=== PATIENT | male | born 1950 | race Caucasian/White ===

== ENCOUNTER 2023-08-27 14:03 | Inpatient (IN) ==
[2023-08-27] MEDS ORDERED: IOPAMIDOL 100 ML BOTTLE IV ONE (14:04)
[2023-08-27 15:03] LABS: Basophils # (Auto) 0.01 K/mcL (0.00-0.30); Basophils % (Auto) 0.1 % (0.0-2.0); Eosinophils # (Auto) 0.03 K/mcL (0.00-0.70); Eosinophils % (Auto) 0.4 % (0.0-7.0); Hemoglobin 12.7 g/dL (13.7-17.5); Lymphocytes # (Auto) 0.21 K/mcL (1.50-4.80); Lymphocytes % (Auto) 2.6 % (15.5-49.0); Mean Cell Volume 98.7 fL (80.0-100.0); Mean Corpuscular HGB Conc 33.4 g/dL (31.0-36.0); Mean Platelet Volume 9.7 fL (8.8-12.5); Monocytes # (Auto) 0.37 K/mcL (0.10-0.90); Monocytes % (Auto) 4.5 % (1.0-12.0); Neutrophils % (Auto) 91.9 % (38.0-78.0); Platelet Count 206 K/mcL (140-440); RBC 3.85 M/mcL (4.63-6.08); Red Cell Distribution Width 17.1 % (11.5-14.5); WBC 8.2 K/mcL (4.5-11.0)
[2023-08-27 16:05] LABS: ALT/SGPT 32 U/L (<40); AST/SGOT 29 U/L (<40); Albumin 3.8 gm/dL (3.2-5.2); Albumin/Globulin Ratio 1.2 (1.0-2.3); Alkaline Phosphatase 156 U/L (39-117); Anion Gap 13.7 (8.0-16.0); Bilirubin,Total 0.3 mg/dL (0.1-1.0); Blood Urea Nitrogen 24 mg/dL (8-23); Calcium 9.5 mg/dL (8.6-10.4); Carbon Dioxide 23 mmol/L (22-30); Chloride 100 mmol/L (96-108); Globulin 3.2 gm/dL (2.2-3.7); Glomerular Filtration Rate 91; Glucose 144 mg/dL (70-105)
[2023-08-27] MEDS ORDERED: fentaNYL 100 MCG/2 ML VIAL IV ONE ×2 (17:43→18:48)
[2023-08-27] MEDS ORDERED: PIPERACILLIN SODIUM/TAZOBACTAM 3.375 GM in DEXTROSE 5% IN WATER 50 ML IV ONE (17:43)
[2023-08-27] MEDS ORDERED: ONDANSETRON 4 MG/2 ML VIAL ONE (18:47)
[2023-08-27] MEDS ORDERED: ROCURONIUM 10 MG/ML ML IV ONE (18:47)
[2023-08-27] MEDS ORDERED: PROPOFOL 200 MG/20 ML VIAL IV ONE (18:47)
[2023-08-27] MEDS ORDERED: ePHEDrine 50 MG/5 ML SYRINGE (ANEST) IV ONE (19:32)
[2023-08-27] MEDS ORDERED: PHENYLephrine 1 MG/10 ML SYRINGE (ANEST) ONE (19:32)
[2023-08-27] MEDS ORDERED: CLINDAMYCIN IN 0.9 % SOD CHLOR 900 MG/50 ML BAG IV STA (19:41)
[2023-08-27] MEDS ORDERED: SUGAMMADEX SODIUM 200 MG/2 ML VIAL IV ONE (19:59)
[2023-08-27] MEDS ORDERED: IPRATROPIUM/ALBUTEROL 3 ML AMPUL.NEB NEB PRN (20:28)
[2023-08-27] MEDS ORDERED: ONDANSETRON 4 MG/2 ML VIAL IV PRN (20:28)
[2023-08-27] MEDS ORDERED: LACTATED RINGERS 1,000 ML IV SCH (20:30)
[2023-08-27] MEDS ORDERED: BUPIVACAINE W/EPI 0.25% 50 ML VIAL IJ ONE (20:45)
[2023-08-27] MEDS ORDERED: VANCOMYCIN PER PHARMACY IV ONE (21:38)
[2023-08-27] MEDS ORDERED: HYDROmorphone 0.5 MG/0.5 ML SYRINGE IV PRN (21:45)
[2023-08-27] MEDS: DEXTROSE 5%-1/2NS W/10MEQ KCL 1,000 ML IV SCH (22:03)
[2023-08-27] MEDS ORDERED: VANCOMYCIN 500 MG in 0.9 % SODIUM CHLORIDE 100 ML IV ONE (22:28)
[2023-08-27] MEDS ORDERED: oxyCODONE IR 5 MG TABLET PO ONE (22:54)
[2023-08-27] MEDS ORDERED: ACETAMINOPHEN 325 MG TABLET PO ONE (22:54)
[2023-08-27] MEDS: ACETAMINOPHEN 325 MG TABLET PO PRN (22:56)
[2023-08-27] MEDS: oxyCODONE IR 5 MG TABLET PO PRN (22:58)
[2023-08-28] MEDS: CLINDAMYCIN IN 0.9 % SOD CHLOR 600 MG/50 ML BAG IV SCH ×4 (00:07→17:30)
[2023-08-28] MEDS ORDERED: 0.9 % SODIUM CHLORIDE 1,000 ML IV SCH (00:30)
[2023-08-28] MEDS: PIPERACILLIN SODIUM/TAZOBACTAM 3.375 GM in DEXTROSE 5% IN WATER 100 ML IV SCH ×3 (00:54→20:31)
[2023-08-28] MEDS: ACETAMINOPHEN 325 MG TABLET PO PRN ×2 (04:55→13:27)
[2023-08-28] MEDS ORDERED: oxyCODONE IR 5 MG TABLET PO ONE (05:37)
[2023-08-28] MEDS ORDERED: ACETAMINOPHEN 325 MG TABLET PO ONE (05:37)
[2023-08-28] MEDS: oxyCODONE IR 5 MG TABLET PO PRN (05:39)
[2023-08-28] MEDS: DEXTROSE 5%-1/2NS W/10MEQ KCL 1,000 ML IV SCH (06:51)
[2023-08-28 07:08] LABS: Hematocrit 30.5 % (40.1-51.0); Hemoglobin 10.1 g/dL (13.7-17.5); Mean Cell Volume 100.3 fL (80.0-100.0); Mean Corpuscular HGB Conc 33.1 g/dL (31.0-36.0); Mean Platelet Volume 10.2 fL (8.8-12.5); Platelet Count 162 K/mcL (140-440); RBC 3.04 M/mcL (4.63-6.08); Red Cell Distribution Width 17.4 % (11.5-14.5); WBC 4.5 K/mcL (4.5-11.0)
[2023-08-28 07:22] LABS: Anion Gap 8.4 (8.0-16.0); Blood Urea Nitrogen 16 mg/dL (8-23); Carbon Dioxide 24 mmol/L (22-30); Chloride 104 mmol/L (96-108); Glomerular Filtration Rate 102; Glucose 135 mg/dL (70-105)
[2023-08-28] MEDS ORDERED: VANCOMYCIN PER PHARMACY IV SCH (08:00)
[2023-08-28] MEDS: VANCOMYCIN 1,000 MG in 0.9 % SODIUM CHLORIDE 250 ML IV SCH ×2 (08:34→21:32)
[2023-08-28] MEDS ORDERED: NOREPINEPHRINE BITARTRATE 8 MG in 0.9 % SODIUM CHLORIDE 242 ML IV PRN (09:15)
[2023-08-28] MEDS ORDERED: NOREPINEPHRINE BITARTRATE 8 MG in 0.9 % SODIUM CHLORIDE 242 ML IV SCH ×2 (09:15→15:00)
[2023-08-28] MEDS: 0.9 % SODIUM CHLORIDE 250 ML IV SCH (15:34)
[2023-08-28] MEDS: ONDANSETRON 4 MG/2 ML VIAL IV PRN (20:26)
[2023-08-28] MEDS ORDERED: PROMETHAZINE 25 MG/ML VIAL IV PRN (22:04)
[2023-08-28] MEDS: ALPRAZolam 0.5 MG TABLET PO PRN (22:44)
[2023-08-29] MEDS: CLINDAMYCIN IN 0.9 % SOD CHLOR 600 MG/50 ML BAG IV SCH ×5 (00:19→23:32)
[2023-08-29] MEDS: 0.9 % SODIUM CHLORIDE 250 ML IV SCH ×2 (00:19→11:48)
[2023-08-29] MEDS: PIPERACILLIN SODIUM/TAZOBACTAM 3.375 GM in DEXTROSE 5% IN WATER 100 ML IV SCH ×3 (03:36→19:02)
[2023-08-29 06:05] LABS: Hematocrit 33.6 % (40.1-51.0); Hemoglobin 11.2 g/dL (13.7-17.5); Mean Cell Volume 100.3 fL (80.0-100.0); Mean Corpuscular HGB Conc 33.3 g/dL (31.0-36.0); Platelet Count 280 K/mcL (140-440); RBC 3.35 M/mcL (4.63-6.08); Red Cell Distribution Width 17.5 % (11.5-14.5)
[2023-08-29 06:25] LABS: Anion Gap 11.1 (8.0-16.0); Blood Urea Nitrogen 11 mg/dL (8-23); Carbon Dioxide 18 mmol/L (22-30); Chloride 109 mmol/L (96-108); Glomerular Filtration Rate 103; Glucose 93 mg/dL (70-105)
[2023-08-29] MEDS ORDERED: FUROSEMIDE 20 MG/2 ML VIAL IV ONE (06:57)
[2023-08-29] MEDS: VANCOMYCIN 1,000 MG in 0.9 % SODIUM CHLORIDE 250 ML IV SCH ×2 (09:32→20:39)
[2023-08-29] MEDS ORDERED: NOREPINEPHRINE BITARTRATE 8 MG in 0.9 % SODIUM CHLORIDE 242 ML IV PRN (12:30)
[2023-08-29] MEDS: oxyCODONE IR 5 MG TABLET PO PRN ×2 (17:58→23:32)
[2023-08-30] MEDS: PIPERACILLIN SODIUM/TAZOBACTAM 3.375 GM in DEXTROSE 5% IN WATER 100 ML IV SCH ×3 (03:20→20:45)
[2023-08-30] MEDS: CLINDAMYCIN IN 0.9 % SOD CHLOR 600 MG/50 ML BAG IV SCH ×2 (05:22→11:53)
[2023-08-30] MEDS: ONDANSETRON 4 MG/2 ML VIAL IV PRN ×3 (05:52→16:12)
[2023-08-30] MEDS: OLMESARTAN MEDOXOMIL 20 MG TABLET PO SCH (09:55)
[2023-08-30] MEDS: oxyCODONE IR 5 MG TABLET PO PRN ×2 (09:57→19:01)
[2023-08-30] MEDS: VANCOMYCIN 1,000 MG in 0.9 % SODIUM CHLORIDE 250 ML IV SCH (10:00)
[2023-08-30] MEDS ORDERED: FUROSEMIDE 20 MG/2 ML VIAL IV SCH (11:09)
[2023-08-30] MEDS ORDERED: FLUTICASONE PROPIONATE SPRAY.NAS NS PRN (11:10)
[2023-08-30 12:56] LABS: Hematocrit 35.2 % (40.1-51.0); Hemoglobin 11.4 g/dL (13.7-17.5); Mean Cell Volume 100.3 fL (80.0-100.0); Mean Corpuscular HGB Conc 32.4 g/dL (31.0-36.0); Mean Platelet Volume 9.9 fL (8.8-12.5); Platelet Count 228 K/mcL (140-440); RBC 3.51 M/mcL (4.63-6.08); Red Cell Distribution Width 17.7 % (11.5-14.5); WBC 4.9 K/mcL (4.5-11.0)
[2023-08-30 13:02] LABS: Blood Urea Nitrogen 8 mg/dL (8-23); Carbon Dioxide 18 mmol/L (22-30); Chloride 107 mmol/L (96-108); Glomerular Filtration Rate 106; Glucose 114 mg/dL (70-105)
[2023-08-30] MEDS ORDERED: BISACODYL 10 MG SUPP.RECT PR SCH (13:49)
[2023-08-30] MEDS: SODIUM CHLORIDE NASAL 1 SPRAY BOTTLE NAS SCH ×2 (14:16→20:46)
[2023-08-30] MEDS ORDERED: FUROSEMIDE 40 MG/4 ML VIAL IV SCH (18:00)
[2023-08-30] MEDS: ALPRAZolam 0.5 MG TABLET PO PRN (19:01)
[2023-08-30] MEDS ORDERED: LACTULOSE 20 GM/30 ML ORAL.SOL PO SCH (19:11)
[2023-08-31] MEDS: oxyCODONE IR 5 MG TABLET PO PRN (01:00)
[2023-08-31] MEDS: PIPERACILLIN SODIUM/TAZOBACTAM 3.375 GM in DEXTROSE 5% IN WATER 100 ML IV SCH ×3 (03:36→19:14)
[2023-08-31 08:11] LABS: Blood Urea Nitrogen 8 mg/dL (8-23); Calcium 7.7 mg/dL (8.6-10.4); Carbon Dioxide 23 mmol/L (22-30); Chloride 105 mmol/L (96-108); Glomerular Filtration Rate 92; Glucose 91 mg/dL (70-105)
[2023-08-31] MEDS: OLMESARTAN MEDOXOMIL 20 MG TABLET PO SCH (08:32)
[2023-08-31] MEDS: SODIUM CHLORIDE NASAL 1 SPRAY BOTTLE NAS SCH ×2 (08:33→20:59)
[2023-08-31] MEDS ORDERED: POTASSIUM CHLORIDE 20 MEQ TABLET PO SCH (11:40)
[2023-08-31] MEDS: FUROSEMIDE 20 MG/2 ML VIAL IV SCH (16:32)
[2023-08-31] MEDS: ALPRAZolam 0.5 MG TABLET PO PRN (21:51)
[2023-09-01] MEDS: PIPERACILLIN SODIUM/TAZOBACTAM 3.375 GM in DEXTROSE 5% IN WATER 100 ML IV SCH ×3 (02:29→20:19)
[2023-09-01] MEDS: FUROSEMIDE 20 MG/2 ML VIAL IV SCH (07:20)
[2023-09-01 08:10] LABS: Blood Urea Nitrogen 11 mg/dL (8-23); Calcium 8.2 mg/dL (8.6-10.4); Carbon Dioxide 25 mmol/L (22-30); Chloride 103 mmol/L (96-108); Glomerular Filtration Rate 92; Glucose 128 mg/dL (70-105)
[2023-09-01] MEDS: OLMESARTAN MEDOXOMIL 20 MG TABLET PO SCH (08:13)
[2023-09-01] MEDS: SODIUM CHLORIDE NASAL 1 SPRAY BOTTLE NAS SCH ×2 (08:14→20:19)
[2023-09-01] MEDS ORDERED: VANCOMYCIN 1,000 MG in 0.9 % SODIUM CHLORIDE 250 ML IV ONE (11:00)
[2023-09-01] MEDS: ALPRAZolam 0.5 MG TABLET PO PRN (22:49)
[2023-09-02] MEDS: PIPERACILLIN SODIUM/TAZOBACTAM 3.375 GM in DEXTROSE 5% IN WATER 100 ML IV SCH ×2 (02:27→13:03)
[2023-09-02 07:10] LABS: Vancomycin,Random 17.5 ug/mL
[2023-09-02] MEDS: SODIUM CHLORIDE NASAL 1 SPRAY BOTTLE NAS SCH (10:03)
[2023-09-02] MEDS: OLMESARTAN MEDOXOMIL 20 MG TABLET PO SCH (10:03)
[2023-09-02 10:22] LABS: Blood Urea Nitrogen 14 mg/dL (8-23); Calcium 8.1 mg/dL (8.6-10.4); Carbon Dioxide 22 mmol/L (22-30); Chloride 105 mmol/L (96-108); Glomerular Filtration Rate 92; Glucose 84 mg/dL (70-105)
== END 2023-09-02 16:35 | DRG 394 ==
LOC: ED 14:03 → SSSU 18:35 → MEDSUR 21:07 → INTOOBSV 21:07 → ICU 08-28 10:50 → MEDSUR 08-29 17:50
PROVIDERS: ADMIT Surgery Surgical Critical Care; ATTEND Internal Medicine

== ENCOUNTER 2024-05-04 13:56 | Inpatient (IN) ==
[2024-05-04] MEDS: KETOROLAC 15 MG/ML VIAL IV ONE (14:35)
[2024-05-04 14:58] LABS: Basophils # (Auto) 0.03 K/mcL (0.00-0.30); Basophils % (Auto) 0.7 % (0.0-2.0); Eosinophils # (Auto) 0.05 K/mcL (0.00-0.70); Eosinophils % (Auto) 1.2 % (0.0-7.0); Hematocrit 40.4 % (40.1-51.0); Hemoglobin 12.9 g/dL (13.7-17.5); Lymphocytes # (Auto) 0.71 K/mcL (1.50-4.80); Mean Cell Volume 96.7 fL (80.0-100.0); Mean Corpuscular HGB Conc 31.9 g/dL (31.0-36.0); Mean Platelet Volume 9.9 fL (8.8-12.5); Monocytes # (Auto) 0.28 K/mcL (0.10-0.90); Monocytes % (Auto) 6.7 % (1.0-12.0); Neutrophils % (Auto) 74.4 % (38.0-78.0); Platelet Count 244 K/mcL (140-440); RBC 4.18 M/mcL (4.63-6.08); Red Cell Distribution Width 15.3 % (11.5-14.5); WBC 4.2 K/mcL (4.5-11.0)
[2024-05-04 15:16] LABS: ALT/SGPT 12 U/L (<40); AST/SGOT 20 U/L (<40); Albumin 4.2 gm/dL (3.2-5.2); Albumin/Globulin Ratio 1.6 (1.0-2.3); Alkaline Phosphatase 119 U/L (39-117); Bilirubin,Total 0.4 mg/dL (0.1-1.0); Blood Urea Nitrogen 19 mg/dL (8-23); Calcium 9.6 mg/dL (8.6-10.4); Carbon Dioxide 28 mmol/L (22-30); Chloride 102 mmol/L (96-108); Globulin 2.6 gm/dL (2.2-3.7); Glomerular Filtration Rate 98; Glucose 157 mg/dL (70-105); Potassium 4.1 mmol/L (3.3-5.1); Sodium 139 mmol/L (133-145)
[2024-05-04] MEDS ORDERED: SENNOSIDES 1 TABLET PO PRN (17:33)
[2024-05-04] MEDS ORDERED: MAGNESIUM HYDROXIDE 30 ML ORAL.SUSP PO PRN (17:33)
[2024-05-04] MEDS ORDERED: oxyCODONE IR 5 MG TABLET PO PRN (17:33)
[2024-05-04] MEDS ORDERED: ONDANSETRON 4 MG/2 ML VIAL IV PRN (17:33)
[2024-05-04] MEDS: ACETAMINOPHEN 325 MG TABLET PO PRN (18:13)
[2024-05-04] MEDS: 0.9 % SODIUM CHLORIDE 10 ML SYRINGE IV SCH (20:08)
[2024-05-04] MEDS: HEPARIN 5,000 UNIT/ML VIAL SQ SCH (20:08)
[2024-05-04] MEDS ORDERED: traMADol 50 MG TABLET PO PRN (20:16)
[2024-05-04] MEDS: TAMSULOSIN 0.4 MG CAPSULE PO SCH (21:32)
[2024-05-04] MEDS: ALPRAZolam 0.5 MG TABLET PO PRN (21:32)
[2024-05-05 06:07] LABS: Basophils # (Auto) 0.02 K/mcL (0.00-0.30); Basophils % (Auto) 0.6 % (0.0-2.0); Eosinophils # (Auto) 0.12 K/mcL (0.00-0.70); Eosinophils % (Auto) 3.6 % (0.0-7.0); Hematocrit 34.2 % (40.1-51.0); Hemoglobin 11.3 g/dL (13.7-17.5); Lymphocytes # (Auto) 1.11 K/mcL (1.50-4.80); Lymphocytes % (Auto) 33.6 % (15.5-49.0); Mean Cell Volume 95.5 fL (80.0-100.0); Monocytes # (Auto) 0.26 K/mcL (0.10-0.90); Monocytes % (Auto) 7.9 % (1.0-12.0); Neutrophils % (Auto) 54.3 % (38.0-78.0); Platelet Count 219 K/mcL (140-440); RBC 3.58 M/mcL (4.63-6.08); Red Cell Distribution Width 15.3 % (11.5-14.5); WBC 3.3 K/mcL (4.5-11.0)
[2024-05-05 06:43] LABS: ALT/SGPT 9 U/L (<40); AST/SGOT 19 U/L (<40); Albumin 3.5 gm/dL (3.2-5.2); Albumin/Globulin Ratio 1.7 (1.0-2.3); Alkaline Phosphatase 96 U/L (39-117); Bilirubin,Total 0.5 mg/dL (0.1-1.0); Blood Urea Nitrogen 23 mg/dL (8-23); Calcium 8.8 mg/dL (8.6-10.4); Carbon Dioxide 24 mmol/L (22-30); Chloride 105 mmol/L (96-108); Globulin 2.1 gm/dL (2.2-3.7); Glomerular Filtration Rate 92; Glucose 93 mg/dL (70-105); Potassium 4.2 mmol/L (3.3-5.1); Sodium 139 mmol/L (133-145)
[2024-05-05] MEDS: CILOSTAZOL 100 MG TABLET PO SCH (08:27)
[2024-05-05] MEDS: OLMESARTAN MEDOXOMIL 20 MG TABLET PO SCH (08:27)
[2024-05-05] MEDS: SODIUM CHLORIDE NASAL 1 SPRAY BOTTLE NAS PRN (22:43)
[2024-05-06 06:04] LABS: Basophils # (Auto) 0.02 K/mcL (0.00-0.30); Basophils % (Auto) 0.6 % (0.0-2.0); Eosinophils # (Auto) 0.09 K/mcL (0.00-0.70); Eosinophils % (Auto) 2.8 % (0.0-7.0); Hematocrit 34.4 % (40.1-51.0); Hemoglobin 11.1 g/dL (13.7-17.5); Lymphocytes # (Auto) 1.18 K/mcL (1.50-4.80); Lymphocytes % (Auto) 36.2 % (15.5-49.0); Mean Cell Volume 96.6 fL (80.0-100.0); Mean Corpuscular HGB Conc 32.3 g/dL (31.0-36.0); Monocytes # (Auto) 0.29 K/mcL (0.10-0.90); Monocytes % (Auto) 8.9 % (1.0-12.0); Neutrophils % (Auto) 51.5 % (38.0-78.0); Platelet Count 215 K/mcL (140-440); RBC 3.56 M/mcL (4.63-6.08); Red Cell Distribution Width 15.1 % (11.5-14.5); WBC 3.3 K/mcL (4.5-11.0)
[2024-05-06 06:21] LABS: ALT/SGPT 10 U/L (<40); AST/SGOT 18 U/L (<40); Albumin 3.5 gm/dL (3.2-5.2); Albumin/Globulin Ratio 1.7 (1.0-2.3); Alkaline Phosphatase 99 U/L (39-117); Bilirubin,Total 0.4 mg/dL (0.1-1.0); Blood Urea Nitrogen 26 mg/dL (8-23); Carbon Dioxide 26 mmol/L (22-30); Chloride 105 mmol/L (96-108); Globulin 2.1 gm/dL (2.2-3.7); Glomerular Filtration Rate 98; Glucose 92 mg/dL (70-105); Potassium 4.3 mmol/L (3.3-5.1); Sodium 140 mmol/L (133-145)
[2024-05-06] MEDS ORDERED: FLUTICASONE PROPIONATE SPRAY.NAS NS PRN (09:09)
[2024-05-07 06:16] LABS: Basophils # (Auto) 0.02 K/mcL (0.00-0.30); Basophils % (Auto) 0.6 % (0.0-2.0); Eosinophils % (Auto) 3.1 % (0.0-7.0); Hematocrit 34.5 % (40.1-51.0); Hemoglobin 11.3 g/dL (13.7-17.5); Lymphocytes # (Auto) 1.06 K/mcL (1.50-4.80); Lymphocytes % (Auto) 33.2 % (15.5-49.0); Mean Cell Volume 96.4 fL (80.0-100.0); Mean Corpuscular HGB Conc 32.8 g/dL (31.0-36.0); Mean Platelet Volume 10.2 fL (8.8-12.5); Monocytes # (Auto) 0.26 K/mcL (0.10-0.90); Monocytes % (Auto) 8.2 % (1.0-12.0); Neutrophils % (Auto) 54.9 % (38.0-78.0); Platelet Count 204 K/mcL (140-440); RBC 3.58 M/mcL (4.63-6.08); Red Cell Distribution Width 15.1 % (11.5-14.5); WBC 3.2 K/mcL (4.5-11.0)
[2024-05-07 06:31] LABS: ALT/SGPT 13 U/L (<40); AST/SGOT 26 U/L (<40); Albumin 3.6 gm/dL (3.2-5.2); Albumin/Globulin Ratio 1.7 (1.0-2.3); Alkaline Phosphatase 100 U/L (39-117); Bilirubin,Total 0.5 mg/dL (0.1-1.0); Blood Urea Nitrogen 29 mg/dL (8-23); Calcium 9.1 mg/dL (8.6-10.4); Carbon Dioxide 25 mmol/L (22-30); Chloride 105 mmol/L (96-108); Globulin 2.1 gm/dL (2.2-3.7); Glomerular Filtration Rate 92; Glucose 92 mg/dL (70-105); Potassium 4.2 mmol/L (3.3-5.1); Sodium 140 mmol/L (133-145)
== END 2024-05-07 13:30 | DRG 534 ==
LOC: ED 13:56 → MEDSUR 17:26
PROVIDERS: ADMIT Student in an Organized Health Care Education/Training Program; ATTEND Internal Medicine

== ENCOUNTER 2025-07-29 15:13 | Inpatient (IN) ==
[2025-07-29 19:33] LABS: Basophils # (Auto) 0.02 K/mcL (0.00-0.30); Basophils % (Auto) 0.6 % (0.0-2.0); Eosinophils # (Auto) 0.01 K/mcL (0.00-0.70); Eosinophils % (Auto) 0.3 % (0.0-7.0); Hematocrit 42.7 % (40.1-51.0); Hemoglobin 13.7 g/dL (13.7-17.5); Lymphocytes # (Auto) 0.38 K/mcL (1.50-4.80); Lymphocytes % (Auto) 10.8 % (15.5-49.0); Mean Corpuscular HGB Conc 32.1 g/dL (31.0-36.0); Monocytes # (Auto) 0.15 K/mcL (0.10-0.90); Monocytes % (Auto) 4.3 % (1.0-12.0); Neutrophils % (Auto) 83.7 % (38.0-78.0); Platelet Count 157 K/mcL (140-440); RBC 4.54 M/mcL (4.63-6.08); WBC 3.5 K/mcL (4.5-11.0)
[2025-07-29 19:47] LABS: Bacteria,Urine 0 /hpf (0); Bilirubin,Urine NEGATIVE (Negative); Color,Urine LT. YELLOW; Glucose,Urine (UA) NEGATIVE (Negative); Ketones,Urine NEGATIVE (Negative); Leukocyte Esterase,Urine NEGATIVE /uL (Negative); PH,Urine 6.0 (5.0-9.0); Protein,Urine NEGATIVE (Negative); Specific Gravity,Urine <= 1.005 (1.000-1.035); Urobilinogen,Urine 0.2 mg/dL
[2025-07-29 19:57] LABS: ALT/SGPT 34 U/L (<40); AST/SGOT 27 U/L (<40); Albumin 4.1 gm/dL (3.2-5.2); Albumin/Globulin Ratio 1.7 (1.0-2.3); Alkaline Phosphatase 151 U/L (39-117); Anion Gap 9.0 (8.0-16.0); Bilirubin,Total 1.2 mg/dL (0.1-1.0); Blood Urea Nitrogen 18 mg/dL (8-23); Calcium 9.4 mg/dL (8.6-10.4); Carbon Dioxide 27 mmol/L (22-30); Chloride 106 mmol/L (96-108); Globulin 2.4 gm/dL (2.2-3.7); Glucose 93 mg/dL (70-105); Potassium 3.9 mmol/L (3.3-5.1); Sodium 142 mmol/L (133-145)
[2025-07-29] MEDS ORDERED: ONDANSETRON 4 MG/2 ML VIAL IV PRN (20:38)
[2025-07-29] MEDS ORDERED: BACLOFEN 10 MG TABLET PO PRN (20:38)
[2025-07-29] MEDS ORDERED: hydrALAZINE 20 MG/ML VIAL IV PRN (20:38)
[2025-07-29] MEDS ORDERED: ACETAMINOPHEN 325 MG TABLET PO PRN (20:38)
[2025-07-29] MEDS ORDERED: IPRATROPIUM/ALBUTEROL 3 ML AMPUL.NEB NEB PRN (20:38)
[2025-07-29] MEDS ORDERED: FLUTICASONE PROPIONATE SPRAY.NAS NS PRN (21:48)
[2025-07-29] MEDS: SENNOSIDES 1 TABLET PO SCH (22:56)
[2025-07-29] MEDS: DOCUSATE SODIUM 100 MG CAPSULE PO SCH (22:56)
[2025-07-29] MEDS: 0.9 % SODIUM CHLORIDE 10 ML SYRINGE IV SCH (22:57)
[2025-07-30] MEDS: CILOSTAZOL 100 MG TABLET PO SCH (08:33)
[2025-07-30] MEDS: VITAMIN D3 25 MCG TABLET PO SCH (08:33)
[2025-07-30] MEDS: OLMESARTAN MEDOXOMIL 20 MG TABLET PO SCH (08:34)
[2025-07-30] MEDS: TAMSULOSIN 0.4 MG CAPSULE PO SCH (22:27)
[2025-07-31] MEDS: FLU VACC TS2025-26(65YR UP)/PF 180 MCG/0.5 ML SYRINGE IM ONE (09:13)
[2025-07-31] MEDS: SODIUM CHLORIDE NASAL 1 SPRAY BOTTLE NAS PRN (14:20)
[2025-08-01 06:22] LABS: Basophils # (Auto) 0.01 K/mcL (0.00-0.30); Basophils % (Auto) 0.3 % (0.0-2.0); Eosinophils # (Auto) 0.07 K/mcL (0.00-0.70); Eosinophils % (Auto) 2.2 % (0.0-7.0); Hematocrit 36.8 % (40.1-51.0); Hemoglobin 11.8 g/dL (13.7-17.5); Lymphocytes # (Auto) 0.96 K/mcL (1.50-4.80); Lymphocytes % (Auto) 29.8 % (15.5-49.0); Mean Corpuscular HGB Conc 32.1 g/dL (31.0-36.0); Monocytes # (Auto) 0.28 K/mcL (0.10-0.90); Monocytes % (Auto) 8.7 % (1.0-12.0); Neutrophils % (Auto) 58.4 % (38.0-78.0); Platelet Count 164 K/mcL (140-440); RBC 3.89 M/mcL (4.63-6.08); WBC 3.2 K/mcL (4.5-11.0)
[2025-08-01 06:30] LABS: ALT/SGPT 25 U/L (<40); AST/SGOT 22 U/L (<40); Albumin 3.4 gm/dL (3.2-5.2); Albumin/Globulin Ratio 1.7 (1.0-2.3); Alkaline Phosphatase 119 U/L (39-117); Anion Gap 9.0 (8.0-16.0); Bilirubin,Total 0.5 mg/dL (0.1-1.0); Blood Urea Nitrogen 23 mg/dL (8-23); Calcium 8.8 mg/dL (8.6-10.4); Carbon Dioxide 25 mmol/L (22-30); Chloride 105 mmol/L (96-108); Globulin 2.0 gm/dL (2.2-3.7); Glucose 84 mg/dL (70-105); Potassium 4.2 mmol/L (3.3-5.1); Sodium 139 mmol/L (133-145)
[2025-08-02 06:47] LABS: Basophils # (Auto) 0.01 K/mcL (0.00-0.30); Basophils % (Auto) 0.3 % (0.0-2.0); Eosinophils # (Auto) 0.08 K/mcL (0.00-0.70); Eosinophils % (Auto) 2.5 % (0.0-7.0); Hematocrit 37.1 % (40.1-51.0); Hemoglobin 12.1 g/dL (13.7-17.5); Lymphocytes # (Auto) 0.81 K/mcL (1.50-4.80); Lymphocytes % (Auto) 25.2 % (15.5-49.0); Mean Corpuscular HGB Conc 32.6 g/dL (31.0-36.0); Monocytes # (Auto) 0.26 K/mcL (0.10-0.90); Monocytes % (Auto) 8.1 % (1.0-12.0); Neutrophils % (Auto) 63.6 % (38.0-78.0); Platelet Count 150 K/mcL (140-440); RBC 3.93 M/mcL (4.63-6.08); WBC 3.2 K/mcL (4.5-11.0)
[2025-08-02 07:18] LABS: ALT/SGPT 35 U/L (<40); AST/SGOT 27 U/L (<40); Albumin 3.4 gm/dL (3.2-5.2); Albumin/Globulin Ratio 1.5 (1.0-2.3); Alkaline Phosphatase 117 U/L (39-117); Anion Gap 9.0 (8.0-16.0); Bilirubin,Total 0.8 mg/dL (0.1-1.0); Blood Urea Nitrogen 21 mg/dL (8-23); Calcium 8.8 mg/dL (8.6-10.4); Carbon Dioxide 26 mmol/L (22-30); Chloride 105 mmol/L (96-108); Globulin 2.2 gm/dL (2.2-3.7); Glucose 72 mg/dL (70-105); Potassium 4.1 mmol/L (3.3-5.1); Sodium 140 mmol/L (133-145)
[2025-08-02 11:38] VITALS: TEMP 98; O2SAT 98
== END 2025-08-02 11:51 | DRG 563 ==
LOC: ED 15:13 → MEDSUR 20:37
PROVIDERS: ADMIT Internal Medicine; ATTEND Student in an Organized Health Care Education/Training Program